=== PATIENT | male | born 1940 | race Caucasian/White ===

== ENCOUNTER 2018-05-02 08:51 | Day surgery (SDC) | payer MEDICARE, BC ==
--- NOTE | 2018-04-27 15:19 | HP ---
PREOPERATIVE HISTORY AND PHYSICAL: DATE OF SURGERY/ADMISSION: 05/02/18 DATE OF OFFICE VISIT/ENCOUNTER: 04/12/18 ATTENDING SURGEON: Sienna Kathleen MD * (DICTATED BY MINESH CHANG) PROCEDURE: Right wrist carpal tunnel release. CHIEF COMPLAINT: Right wrist pain, numbness and tingling in right hand. HISTORY OF PRESENT ILLNESS: This is a 77-year-old male who complains of right wrist pain and numbness and tingling in his hand that has been ongoing for several years, gradually getting worse. He tried wearing a brace, but did not get much relief. He had a recent nerve conduction study, which showed moderate carpal tunnel syndrome on the right. He is interested in pursuing surgical intervention for this problem at this time in the form of a right wrist carpal tunnel release. The patient has a significant cardiac history. His signalling and communications engineer is Dr. Munoz and we will obtain clearance from Dr. Munoz prior to proceeding with surgery. PAST MEDICAL HISTORY: 1. Coronary artery disease. 2. Hypertrophic cardiomyopathy. 3. Hypertension. 4. Hyperlipidemia. 5. Osteoarthritis. 6. Depression/anxiety. 7. Environmental allergies. PAST SURGICAL HISTORY: 1. Angioplasty of LAD in 1993. 2. Back surgery in 1973. 3. Hernia repair. CURRENT MEDICATIONS: 1. Aspirin 325 mg daily. 2. Atenolol 50 mg one and half tabs twice a day. 3. Atorvastatin calcium 40 mg daily. 4. B12 5000 mcg daily. 5. Cinnamon 1 tab daily. 6. Enalapril maleate 20 mg 1 tab in the morning 1/2 tab in the p.m. 7. Furosemide 40 mg daily. 8. Garlic daily. 9. Glucosamine/chondroitin 1500 complex 1 tab daily. 10. Hydralazine HCl 10 mg twice a day. 11. Klor-Con 10 mEq daily. 12. Manganese daily. 13. Multivitamin 1 tab daily. 14. Naproxen p.r.n. 15. Nitrostat 0.4 mg. 16. Turmeric daily. 17. Venlafaxine HCl 37.5 mg daily. 18. Venlafaxine HCl 75 mg daily. 19. Vitamin C daily. ALLERGIES: No known drug allergies. Positive for environmental allergies. FAMILY MEDICAL HISTORY: Gout. SOCIAL HISTORY: The patient is retired. He denies tobacco use and recreational drug use. He does drink alcohol on occasion. REVIEW OF SYSTEMS: General: Positive for weakness and fatigue. Negative unexplained weight loss/gain. No known anesthesia problems. HEENT: Negative for headache, lightheadedness, syncopal episodes, visual changes. Integumentary : Negative for abrasions, lesions, or open wounds. Cardiothoracic: Negative for hypertension, chest pain, palpitations, edema. Respiratory: Positive for shortness of breath with exertion. Negative chronic cough and wheezing. GI: Positive for diarrhea. Negative for nausea and vomiting. Negative for GERD. : Negative for nocturia, urinary frequency, urgency, history of UTIs, kidney problems. Musculoskeletal: Positive for current complaint. Positive for chronic back pain. Neurological: Negative for history of seizure, stroke, poor balance. Endocrine: Negative for diabetes and thyroid issues. Hematologic : Negative for easy bruising, anemia, bleeding disorders, history of DVT. Infectious Disease: Possibly positive for history of MRSA. The patient was unclear. Negative for hepatitis C and HIV. PHYSICAL EXAMINATION GENERAL: Well-developed, well-nourished 77-year-old male, in no acute distress. VITAL SIGNS: Height 5 feet 5 inches, weight 219 pounds. Pulse rate 70, blood pressure 162/88. HEENT: Normocephalic, atraumatic. Pupils are equal, round, and reactive to light and accommodation. Extraocular movements are intact. Throat is clear. NECK: Supple. No palpable lymph nodes. PULMONARY: Lungs are clear to auscultation bilaterally. No wheezes, rales, or rhonchi. CARDIOVASCULAR: Regular rate and rhythm. S1, S2. No murmurs, rubs, or gallops. No edema. ABDOMEN: Positive bowel sounds. Soft, nontender. NEUROLOGICAL: Alert and oriented x3. Cranial nerves II through XII are intact. Sensation is intact to light touch. MUSCULOSKELETAL: On exam of his right wrist and hand, he has no muscular wasting. He has weakness with thumb abduction. He can make a fist and extend his fingers. Decrease in wrist range of motion. Skin is intact. Neurovascular function is intact. IMAGING STUDIES: EMG nerve conduction study shows moderately severe right carpal tunnel syndrome. X-rays of the right wrist show arthritis. IMPRESSION: Right carpal tunnel syndrome and right wrist arthritis. PLAN: The patient is scheduled to undergo a right wrist carpal tunnel release with Dr. Kathleen on 05/02/18. He will return to the office 10 days postop for followup and suture removal. A prescription for Tylenol No. 3 was e-scribed to the patient's pharmacy for postoperative pain management. We will get clearance from his signalling and communications engineer, Dr. Munoz, prior to proceeding with surgery. MINESH CHANG [id number]/[facility] #: [id number] [place]
[~2018-05-02 08:51] MED LIST: Buffered Lidocaine 0.9% SYRIN* 5 ML/SYR SYRINGE INTRADERM ONE; Famotidine IV* 10 MG/ML 2 ML (20 mg) IV ONE
[2018-05-02] MEDS ORDERED: Famotidine IV* 10 MG/ML 2 ML (20 mg) ONE (08:58)
[2018-05-02] MEDS ORDERED: Midazolam* 1 MG/ML 5 ML VIAL (5 MG) ONE (09:58)
[2018-05-02] MEDS ORDERED: fentaNYL* 50 MCG/ML 2 ML VIAL (100 MCG VIAL) ONE (09:58)
[2018-05-02] MEDS ORDERED: Naloxone* 0.4 MG/ML 1 ML VIAL IV PRN (10:07)
[2018-05-02] MEDS ORDERED: Acetaminophen TAB* 325 MG PO PRN (10:07)
[2018-05-02] MEDS ORDERED: oxyCODONE TAB* 5 MG TAB PO PRN (10:07)
[2018-05-02] MEDS ORDERED: DiMENhydriNATE IV* 50 MG/ML VIAL IV PUSH PRN (10:07)
[2018-05-02] MEDS ORDERED: Lidocaine 1% INJ* 10 MG/ML 30 ML SDV ONE (10:14)
[2018-05-02] MEDS ORDERED: Ondansetron INJ* 2 MG/ML VIAL ONE (10:22)
[2018-05-02] MEDS ORDERED: Ketorolac INJ* 30 MG/ML 1 ML VIAL ONE (10:22)
[2018-05-02] MEDS ORDERED: Lidocaine 2% PF * 5 ML VIAL ONE (10:22)
[2018-05-02] MEDS ORDERED: Propofol* 10 MG/ML 20 ML BTL IV PUSH ONE (10:22)
[2018-05-02] MEDS ORDERED: Labetalol IV* 5 MG/ML 20 ML VIAL ONE (10:22)
[2018-05-02 11:04] VITALS: BP 184/99
--- NOTE | 2018-05-02 17:16 | OP ---
DATE OF OPERATION: 05/02/18 - [facility] DATE OF : 40 SURGEON: Sienna Kathleen MD SHOE TREER: MINESH Reynoso ANESTHESIA: Local MAC. PRE-OP DIAGNOSIS: Right carpal tunnel syndrome. POST-OP DIAGNOSIS: Right carpal tunnel syndrome. OPERATIVE PROCEDURE: Right carpal tunnel release. ESTIMATED BLOOD LOSS: Zero. TOURNIQUET TIME: Approximately 8 minutes. INDICATIONS FOR PROCEDURE: Barrington is a 77-year-old man who has numbness and tingling in the median nerve distribution of his right hand, he presents for right carpal tunnel release. DESCRIPTION OF PROCEDURE: The patient was brought to the operating room, was given a sedation anesthetic and local infiltration of 10 cc of 1% plain lidocaine in the palm of his right hand. The skin of his right hand and palm was prepped and draped in the usual sterile fashion. The hand and forearm were exsanguinated and the tourniquet elevated to 250 mmHg. A longitudinal incision was made in the palm in line with the ring finger, dissected sharply through the subcutaneous tissue down to the transverse carpal ligament. The ligament was divided sharply with a knife and then more proximally with the scissors. The nerve was dissected free from the surrounding tissue and there was an area of significant compression at the mid portion of the ligament. The wound was irrigated and the skin edges reapproximated with 4-0 nylon suture. The wound was dressed with Xeroform, 4x4, Webril, and an Perry wrap. The patient tolerated the procedure well and was brought to the recovery room in good condition. [id number]/[facility] #: [id number] [facility]
== END 2018-05-02 11:15 | disposition home or self-care (01) ==
LOC: OREAST 08:51
PROVIDERS: ATTEND Orthopaedic Surgery
DX: G56.01 Carpal tunnel syndrome, right upper limb (principal); I25.10 Atherosclerotic heart disease of native coronary artery without angina pectoris; I11.9 Hypertensive heart disease without heart failure; I43 Cardiomyopathy in diseases classified elsewhere; E78.5 Hyperlipidemia, unspecified; M19.90 Unspecified osteoarthritis, unspecified site; F41.8 Other specified anxiety disorders; J30.89 Other allergic rhinitis
CPT/HCPCS: J1885; J2250; J2405; J2704; J3010

== ENCOUNTER 2018-08-20 08:31 | Emergency (ER) | payer MEDICARE, BC ==
--- NOTE | 2018-08-20 09:33 | ED ---
Lower Extremity - HPI Summary HPI Summary: Patient presents with right lower extremity pain, swelling and firmness of thigh since Tuesday (5 days now). He is 1 month status post total knee replacement on this side w/ Dr. Stevens. He was taking Coumadin for DVT prophylaxis however stopped this recently as advised. He denies fever, chills, redness, numbness, tingling, weakness. He did go for a walk last night and has been going to physical therapy - reports no injuries or overuse he's been told. Orthopedic f/u a few weeks ago felt was progressing as usual - next f/u this Tuesday. He ortho today who sent him here for evaluation of DVT. He has not taken any pain medication prior to arrival and reports he 7 out of 10. Does not want anything for pain at this time. - History of Current Complaint Chief Complaint: EDExtremityLower Stated Complaint: RIGHT LEG PAIN Time Seen by Provider: 08/20/18 08:51 Hx Obtained From: Patient, Family/Elementary School Registrar - Pain Intensity: 7 - Allergies/Home Medications Allergies/Adverse Reactions: Allergies Allergy/AdvReac Type Severity Reaction Status Date / Time No Known Drug Allergies Allergy See Comment Verified 08/20/18 08:46 Hay Fever Allergy Runny Nose Uncoded 08/20/18 08:46 PMH/Surg Hx/FS Hx/Imm Hx Previously Healthy: Yes Endocrine/Hematology History: Reports: Hx Anemia - as a child age 7-8 years old Denies: Hx Anticoagulant Therapy, Hx Blood Disorders, Hx Diabetes Cardiovascular History: Reports: Hx Cardiomegaly - Non-Obstructive hypertrophic cardiomyopathy, Hx Congestive Heart Failure - DR. 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, mitral and tricuspid insufficiency, Other Cardiovascular Problems/Disorders - chronic ischemia, hyperlipidemia,dilated descending aorta Denies: Hx Angina, Hx Myocardial Infarction Respiratory History: Denies: Hx Asthma, Hx Chronic Obstructive Pulmonary Disease (COPD), Other Respiratory Problems/Disorders GI History: Denies: Other GI Disorders History: Reports: Other Problems/Disorders - BENIGN PROSTATE HYPERTROPHY- prostate surgery 2014 Musculoskeletal History: Reports: Hx Arthritis - right wrist, knees, Hx Tendonitis - Right carpal tunnel syndrome Sensory History: Reports: Hx Contacts or Glasses - READING GLASSES Denies: Hx Hearing Aid Opthamlomology History: Reports: Hx Contacts or Glasses - READING GLASSES Neurological History: Denies: Other Neuro Impairments/Disorders Psychiatric History: Reports: Hx Anxiety - always anxious, states he lost a son 3 years ago-gets hyper, Hx Depression - ON MEDICATION, states he is always depressed - Cancer History Hx Chemotherapy: No - Surgical History Surgery Procedure, Year, and Place: Back surgery 35 years ago L 5. Inguinal Hernia surgery 10 years ago. Angioplasty 1993. Prostate surgery. Rt TKR 2017 Hx Anesthesia Reactions: No - Immunization History Date of Tetanus Vaccine: Up to date Date of Influenza Vaccine: Fall 2012 Infectious Disease History: No Infectious Disease History: Reports: Hx of Known/Suspected MRSA - hx of on bilat thighs Denies: Traveled Outside the [place] in Last 30 Days - Social History Lives: With Family - Alcohol Use: Weekly Alcohol Amount: 1-2 beers/week Hx Substance Use: No Substance Use Type: Reports: None Hx Tobacco Use: No Smoking Status (MU): Never Smoked Tobacco Review of Systems Constitutional: Negative Negative: Fever, Chills, Fatigue Cardiovascular: Negative Negative: Chest Pain Positive: Shortness Of Breath - with exertion only (baseline per pt and ) Gastrointestinal: Negative Negative: Abdominal Pain, Vomiting, Diarrhea, Nausea Genitourinary: Negative Positive: Myalgia, Edema. Negative: Decreased ROM Skin: Negative Neurological: Negative Psychological: Normal All Other Systems Reviewed And Are Negative: Yes Physical Exam Triage Information Reviewed: Yes Vital Signs On Initial Exam: Initial Vitals Temp Pulse Resp BP Pulse Ox 99.2 F 98 18 179/99 95 08/20/18 08:40 08/20/18 08:40 08/20/18 08:40 08/20/18 08:40 08/20/18 08:40 Vital Signs Reviewed: Yes Appearance: Positive: Well-Appearing, No Pain Distress Skin: Positive: Warm, Skin Color Reflects Adequate Perfusion, Dry - no erythema , no ecchymosis, no lesions, no skin breakdown Head/Face: Positive: Normal Head/Face Inspection ENT: Positive: Hearing grossly normal, Pharynx normal - mucosa moist Respiratory/Lung Sounds: Positive: Breath Sounds Present Cardiovascular: Positive: Pulses are Symmetrical in both Upper and Lower Extremities, Leg Edema Right - +1-2 pitting edema in Rt tibial region and foot - NTTP Abdomen Description: Positive: Nontender, No Organomegaly, Soft Musculoskeletal: Positive: Strength/ROM Intact - Pt can actively and passively move Rt hip, knee, ankle and toes - reports mild Rt thigh pain w/ hip/knee flexion, Pain @ - Rt anterior thigh w/ mild TTP Neurological: Positive: Normal, Sensory/Motor Intact, Alert, Oriented to Person Place, Time, CN Intact II-III Psychiatric: Positive: Normal Diagnostics - Vital Signs Vital Signs Temp Pulse Resp BP Pulse Ox 08/20/18 09:00 99 97 08/20/18 08:56 107 97 08/20/18 08:40 99.2 F 98 18 179/99 95 - Laboratory Result Diagrams: 08/20/18 09:52 08/20/18 09:52 Lab Statement: Any lab studies that have been ordered have been reviewed, and results considered in the medical decision making process. Lower Extremity Course/Dx - Course Course Of Treatment: Pt here w/ Rt LE swelling and pain since Tuesday. No injuries or known overuse however he has been walking and in PT. Also stopped coumadin for DVT prophylaxis recently. WAs sent by ortho to r/o DVT. U/S: No DVT, no phlebitis. Labs: mildly elevated inflammatiory markers w/o elevated WBC 's, fever or s/sx of infection. XR's: no actute findings and hardware appears to be intact. Does not appear to have compartment syndrome. Discussed w/ Dr. Hughes who reports swelling 1 month post op TKR can be normal. Recommended compression stocking (thigh high) which he's not been wearing. Will follow-up with ortho this week and return to ED if danger s/sx present. Pt and agree w/ plan. - Diagnoses Provider Diagnoses: Right leg swelling Discharge - Sign-Out/Discharge Documenting (check all that apply): Patient Departure - Discharge Plan Condition: Stable Disposition: HOME Patient Education Materials: Leg Edema (ED) Referrals: Rocio Stevens MD [Medical Doctor] - Additional Instructions: The definitive cause of your leg swelling was not identified today however there is suspicion that possible overuse after your total knee replacement could be the cause. It is important that you maintain gentle range of motion without sitting or standing for prolonged periods. You may also start wearing a thigh-high compression stocking - put this on first thing in the morning, where throughout the day and remove before bedtime. Additionally, take your medications as directed especially your lasix to reduce fluid. Avoid salt. Keep follow-up with orthopedics and return to the emergency department if her symptoms worsen. - Billing Disposition and Condition Condition: STABLE Disposition: Home
[2018-08-20 10:00] LABS: ABS Basophils 0.1 10^3/ul (0-0.2); ABS Eosinophils 0.8 10^3/ul (0-0.6); ABS Lymphocytes 1.3 10^3/ul (1.0-4.8); ABS Monocytes 0.7 10^3/ul (0-0.8); ABS Neutrophils 6.5 10^3/ul (1.5-7.7); ABS Nucleated RBC 0 10^3/ul; Eosinophil % 8.2 %; Hematocrit 33 % (42-52); Hemoglobin 11.3 g/dl (14.0-18.0); Lymphocyte % 14.3 %; Mean Corpuscular HGB Conc 34 g/dl (31-36); Mean Corpuscular Hemoglobin 29 pg (27-31); Mean Corpuscular Volume 87 fL (80-94); Mean Platelet Volume 8.3 fL (7.4-10.4); Nucleated Red Blood Cells % 0; Platelet Count 338 10^3/ul (150-450); Red Blood Count 3.82 10^6/ul (4.00-5.40); Red Cell Distribution Width 14 % (10.5-15); White Blood Count 9.4 10^3/ul (3.5-10.8)
[2018-08-20 10:17] LABS: EGFR Non-African American 80.8 (>60)
[2018-08-20 10:25] LABS: INR 1.1 (0.77-1.02)
[2018-08-20 12:31] VITALS: BP 174/89
== END 2018-08-20 12:36 | disposition home or self-care (01) ==
LOC: ED 08:31
DX: R60.0 Localized edema (principal); E78.00 Pure hypercholesterolemia, unspecified; F32.9 Major depressive disorder, single episode, unspecified; M16.0 Bilateral primary osteoarthritis of hip; M85.88 Other specified disorders of bone density and structure, other site; I73.9 Peripheral vascular disease, unspecified
CPT/HCPCS: 36415; 72170; 80053; 83605; 85025; 85610; 85652; 85730; 86140; 99282

== ENCOUNTER 2018-10-23 19:34 | Observation (INO) | payer MEDICARE, BC ==
[2018-10-23] MEDS ORDERED: hydrALAZINE IV* 20 MG/ML VIAL IV SLOW PU ONE (20:09)
--- NOTE | 2018-10-23 20:12 | ED ---
Neurological HPI - HPI Summary HPI Summary: The patient is a 78 year old male who is presenting to the [facility] with a chief complaint of confusion. The patient rates the pain 0/10 in severity. Symptoms aggravated by nothing. Symptoms alleviated by nothing. As per Triage, the patient was brought in by and son and was confused. The patient is currently alert and orientated. However, prior to [facility] arrival, the patient had an episode of confusion where the patient was unsure where he was and why he was there. Patient was seen to be at baseline at 1730 today. During the initial examination, the patient is alert to his name. Patient reports of nervousness and denies LARA, nausea and vomiting. Prior to 1730, the patient denies any symptoms and states the "day was normal." Around 1730, the patient began asking questions to his that were previously known such as about their elder son, and where they why they had been staying at their daughter in law's house. The patient's verbal communication and skills were at normal. The duration of this confused period was 1 hour. Patient has not taken his medication today, however, he is normally complaint except on rare occasions where he forgets. Past medical history includes HTN. - History of Current Complaint Chief Complaint: EDNeurologicalDeficit Stated Complaint: CONFUSED Time Seen by Provider: 10/23/18 19:56 Hx Obtained From: Patient Onset/Duration: Sudden Onset Pain Intensity: 0 Aggravating: Nothing Alleviating: Nothing Associated Signs and Symptoms: Positive: Confusion. Negative: Nausea/Vomiting, Fever - Additional Pertinent History Primary Care Physician: [id number] - Allergy/Home Medications Allergies/Adverse Reactions: Allergies Allergy/AdvReac Type Severity Reaction Status Date / Time No Known Drug Allergies Allergy See Comment Verified 10/23/18 19:54 Hay Fever Allergy Runny Nose Uncoded 10/23/18 19:54 PMH/Surg Hx/FS Hx/Imm Hx Endocrine/Hematology History: Reports: Hx Anemia - as a child age 7-8 years old Denies: Hx Anticoagulant Therapy, Hx Blood Disorders, Hx Diabetes Cardiovascular History: Reports: Hx Cardiomegaly - Non-Obstructive hypertrophic cardiomyopathy, Hx Congestive Heart Failure - DR. CAN OVERLOCK HEMMER, Hx Coronary Artery Disease - CHOLESTEROL CONTROL WITH MEDS, Hx Hypercholesterolemia , Hx Hypertension, Hx Valvular Heart Disease - trace to mild aortic, mitral and tricuspid insufficiency, Other Cardiovascular Problems/Disorders - chronic ischemia, hyperlipidemia,dilated descending aorta Denies: Hx Angina, Hx Myocardial Infarction Respiratory History: Denies: Hx Asthma, Hx Chronic Obstructive Pulmonary Disease (COPD), Other Respiratory Problems/Disorders GI History: Denies: Other GI Disorders History: Reports: Other Problems/Disorders - BENIGN PROSTATE HYPERTROPHY- prostate surgery 2014 Musculoskeletal History: Reports: Hx Arthritis - right wrist, knees, Hx Tendonitis - Right carpal tunnel syndrome Sensory History: Reports: Hx Contacts or Glasses - READING GLASSES Denies: Hx Hearing Aid Opthamlomology History: Reports: Hx Contacts or Glasses - READING GLASSES Neurological History: Denies: Other Neuro Impairments/Disorders Psychiatric History: Reports: Hx Anxiety - always anxious, states he lost a son 3 years ago-gets hyper, Hx Depression - ON MEDICATION, states he is always depressed - Cancer History Hx Chemotherapy: No - Surgical History Surgery Procedure, Year, and Place: Back surgery 35 years ago L 5. Inguinal Hernia surgery 10 years ago. Angioplasty 1993. Prostate surgery. Rt TKR 2017 Hx Anesthesia Reactions: No - Immunization History Date of Tetanus Vaccine: Up to date Date of Influenza Vaccine: Fall 2012 Infectious Disease History: No Infectious Disease History: Reports: Hx of Known/Suspected MRSA - hx of on bilat thighs Denies: Traveled Outside the [place] in Last 30 Days - Family History Family History: Gout and Meniere's disease - Social History Occupation: Retired Lives: With Family Alcohol Use: Weekly Alcohol Amount: 1-2 beers/week Hx Substance Use: No Substance Use Type: Reports: None Hx Tobacco Use: No Smoking Status (MU): Never Smoked Tobacco Review of Systems Constitutional: Negative Eyes: Negative ENT: Negative Cardiovascular: Negative Respiratory: Negative Negative: Vomiting, Nausea Genitourinary: Negative Musculoskeletal: Negative Skin: Negative Negative: Headache Psychological: Other - [facility] All Other Systems Reviewed And Are Negative: Yes Physical Exam - Summary Physical Exam Summary: VITAL SIGNS: Reviewed. GENERAL: Patient is a well-developed and nourished (MALE). Patient is not in any acute respiratory distress and is anxious. HEAD AND FACE: No signs of trauma. No ecchymosis, hematomas or skull depressions. No sinus tenderness. EYES: PERRLA, EOMI x 2, No injected conjunctiva, no nystagmus. EARS: Hearing grossly intact. Ear canals and tympanic membranes are within normal limits. MOUTH: Oropharynx within normal limits. NECK: Supple, trachea is midline, no adenopathy, no JVD, no carotid bruit, no c- spine tenderness, neck with full ROM. CHEST: Symmetric, no tenderness at palpation LUNGS: Clear to auscultation bilaterally. No wheezing or crackles. CVS: Regular rate and rhythm, S1 and S2 present, no murmurs or gallops appreciated. ABDOMEN: Soft, non-tender. No signs of distention. No rebound no guarding, and no masses palpated. Bowel sounds are normal. EXTREMITIES: FROM in all major joints, no edema, no cyanosis or clubbing. NEURO: Alert and oriented x 3. No acute neurological deficits. Speech is normal and follows commands. SKIN: Dry and warm Triage Information Reviewed: Yes Vital Signs On Initial Exam: Initial Vitals Temp Pulse Resp BP Pulse Ox 99.2 F 65 16 130/104 92 10/23/18 19:49 10/23/18 19:49 10/23/18 19:49 10/23/18 19:49 10/23/18 19:49 Vital Signs Reviewed: Yes Diagnostics - Vital Signs Vital Signs Temp Pulse Resp BP Pulse Ox 10/23/18 19:49 99.2 F 65 16 130/104 92 - Laboratory Result Diagrams: 10/23/18 20:37 10/23/18 21:55 Lab Statement: Any lab studies that have been ordered have been reviewed, and results considered in the medical decision making process. - CT Brain CT CT Interpretation Completed By: Radiologist Summary of CT Findings: Brain CT reveals No acute intracranial abnormality. ED physician has reviewed this radiology report. - EKG 2019 Cardiac Rate: NL - 70 bpm EKG Rhythm: Sinus Rhythm Summary of EKG Findings: EKG taken at 2019 reveals Sinus Rhythm at 70 bpm. Normal axis, Normal intervals and no ischemic changes. Course/Dx - Course Course Of Treatment: The patient is a 78 year old male who is presenting to the [facility] with a chief complaint of confusion. Lab results were remarkable for WBC and low sodium. A Brain CT and EKG was taken in the [facility]. We consulted Dr. Radha Barros on patient care at 2130. He has accepted patient care. The patient will be admitted to the [facility] with a dx of HTN and TIA. - Diagnoses Provider Diagnoses: HTN (hypertension), TIA (transient ischemic attack) - Physician Notifications Discussed Care Of Patient With: Papo Garcia Time Discussed With Above Provider: 21:30 Instructed by Provider To: Admit As Observation Discharge - Sign-Out/Discharge Documenting (check all that apply): Patient Departure - ADMITTED TO THE [facility] - Discharge Plan Condition: Stable Disposition: ADMITTED TO [facility] - Billing Disposition and Condition Condition: STABLE Disposition: Admitted to [facility] - Attestation Statements Document Initiated by Monikibe: Yes Documenting Scribe: Reed Trujillo Provider For Whom Karla is Documenting (Include Credential): Dr. Deon Poole Scribe Attestation: Reed Loyola scribed for Dr. Deon Poole on 10/24/18 at 0551. Scribe Documentation Reviewed: Yes Provider Attestation: The documentation as recorded by the Reed valenzuela accurately reflects the service I personally performed and the decisions made by Dr. Osito pappas Status of Scribe Document: Viewed
[2018-10-23 20:45] LABS: ABS Basophils 0.1 10^3/ul (0-0.2); ABS Eosinophils 0.3 10^3/ul (0-0.6); ABS Lymphocytes 1.8 10^3/ul (1.0-4.8); ABS Monocytes 1.2 10^3/ul (0-0.8); ABS Neutrophils 9.3 10^3/ul (1.5-7.7); ABS Nucleated RBC 0 10^3/ul; Eosinophil % 2.6 %; Hematocrit 45 % (42-52); Hemoglobin 14.9 g/dl (14.0-18.0); Lymphocyte % 14.5 %; Mean Corpuscular HGB Conc 33 g/dl (31-36); Mean Corpuscular Hemoglobin 29 pg (27-31); Mean Corpuscular Volume 87 fL (80-94); Mean Platelet Volume 9.3 fL (7.4-10.4); Nucleated Red Blood Cells % 0; Platelet Count 300 10^3/ul (150-450); Red Blood Count 5.21 10^6/ul (4.00-5.40); Red Cell Distribution Width 14 % (10.5-15); White Blood Count 12.7 10^3/ul (3.5-10.8)
[2018-10-23 20:54] LABS: Activated Partial Thrombo Time 38.7 seconds (26.0-36.3); INR 1.04 (0.77-1.02)
[2018-10-23] MEDS ORDERED: Labetalol IV* 5 MG/ML 20 ML VIAL IV PUSH ONE (20:59)
[2018-10-23 21:17] LABS: ALT 19 U/L (7-52); Albumin 4.3 g/dL (3.2-5.2); Albumin/Globulin Ratio 1.1 (1-3); Alkaline Phosphatase 47 U/L (34-104); Anion Gap 6 mmol/L (2-11); BUN/Creatinine Ratio 22.7 (8-20); Blood Urea Nitrogen 20 mg/dL (6-24); CO2 Carbon Dioxide 23 mmol/L (22-32); Calcium 9.5 mg/dL (8.6-10.3); Chloride 105 mmol/L (101-111); EGFR African American 101.3 (>60); EGFR Non-African American 83.8 (>60); Glucose 134 mg/dL (70-100); Magnesium 2.3 mg/dL (1.9-2.7); Sodium 134 mmol/L (135-145); Total Protein 8.3 g/dL (6.4-8.9); Troponin I 0.01 ng/mL (<0.04)
[2018-10-23] MEDS ORDERED: Aspirin TAB* 325 MG PO ONE (21:42)
[2018-10-23 22:16] LABS: Potassium Redraw 3.6 mmol/L (3.5-5.0)
[2018-10-23] MEDS ORDERED: Enoxaparin(*) 40 MG/0.4 ML SYR SUBCUT SCH (23:45)
[2018-10-24] MEDS ORDERED: Enalapril TAB* 5 MG PO SCH (00:15)
--- NOTE | 2018-10-24 01:01 | ADMNOTE ---
Subjective Date of Service: 10/23/18 Interval History: ADMISSION HISTORY AND PHYSICAL PCP: Sandra CC: confusion HPI: Patient is a 78 year old man with hypertension who had an episode of confusion at home before dinner, lasting about 60 minutes. He has little memory or insight into this, but his reports he was asking questions that made no sense, did not know where he was, when he was at his [id number]'s house. He had forgotten that his son had 4 years ago. The confusion cleared slowly, with no residual. Patient had forgotten to take his BP medications today. Denies headache, chest pain, SOB. Family History: Findings - Mother of stroke, M&F had CAD, Son of hypertrophic cardiomyopathy and sudden Social History: Findings - Retired, did office work, , one son living, never smoker, light alcohol use, no drugs Past Medical History: Findings - PMH: osteoarthritis, HTN, hyperlipidemia, CAD, hypertrophic cardiomyopathy, depression; PSH: right TKR 07/23, angioplasty, laminectomy, TURP, hernia repair, carpal tunnel release Review of Systems - Measurements Intake and Output: Intake and Output Last 24 Hours 10/21/18 10/22/18 10/23/18 10/24/18 06:59 06:59 06:59 06:59 Weight 90.718 kg - Review of Systems Constitutional Symptoms: Negative: Weakness, Fatigue Dermatology: Positive: Normal HEENT: Positive: Normal Eyes: Positive: Normal Negative: Change in Vision Thyroid: Positive: Normal Cardiology: Negative: Chest Pain, Shortness of Breath, Palpitations, Edema, Syncope Gastroenterology: Positive: Normal Genital - Urinary: Positive: Normal Musculoskeletal: Positive: Arthritis Endocrinology: Positive: Normal Hematologic/Lymphatic: Negative: Anemia Neurology: Positive: Change in Memory Negative: Headache, Change in Vision, Change in Speech, Hx of Stroke\TIA Psychiatry: Positive: Normal Objective Active Medications: Home Meds: Amlodipine Besylate (Norvasc Tab*) 5 mg PO BID [facility] Aspirin (Aspirin Tab*) 325 mg PO QAM [facility] Atenolol (Tenormin Tab*) 75 mg PO DAILY [facility] Atorvastatin Calcium (Lipitor*) 40 mg PO QAM [facility] Enalapril Maleate (Vasotec Tab*) 10 mg PO BEDTIME [facility] Last Admin: 10/24/18 00:30 Dose: 10 mg Enalapril Maleate (Vasotec Tab*) 20 mg PO QAM [facility] Furosemide (Lasix Tab*) 40 mg PO QAM [facility] Hydralazine HCl (Apresoline Tab*) 10 mg PO BID [facility] Potassium Chloride (Klor Con Er Tab*) 10 meq PO QAM [facility] Venlafaxine HCl (Effexor Xr Cap*) 112.5 mg PO QAM [facility]; Protocol Vital Signs - 8 hr 10/23/18 10/23/18 10/23/18 20:07 20:28 20:37 Temperature Pulse Rate 71 68 Respiratory 23 19 20 Rate Blood Pressure 232/118 229/107 209/103 (mmHg) O2 Sat by Pulse 95 94 Oximetry 10/23/18 10/23/18 10/23/18 20:56 21:00 21:20 Temperature Pulse Rate 75 71 68 Respiratory 22 20 28 Rate Blood Pressure 211/89 173/79 (mmHg) O2 Sat by Pulse 97 96 94 Oximetry 10/23/18 10/23/18 10/23/18 21:39 22:00 23:00 Temperature Pulse Rate 68 69 62 Respiratory 25 20 25 Rate Blood Pressure 179/89 (mmHg) O2 Sat by Pulse 93 93 94 Oximetry Oxygen Devices in Use Now: None Appearance: alert, no distress Eyes: No Scleral Icterus Ears/Nose/Mouth/Throat: NL Teeth, Lips, Gums Neck: NL Appearance and Movements; NL JVP Respiratory: Symmetrical Chest Expansion and Respiratory Effort, Clear to Auscultation Cardiovascular: NL Sounds; No Murmurs; No JVD, RRR Abdominal: NL Sounds; No Tenderness; No Distention Lymphatic: No Cervical Adenopathy Extremities: No Edema Skin: No Rash or Ulcers Neurological: Alert and Oriented x 3 Lines/Tubes/Other Access: Clean, Dry and Intact Peripheral IV Nutrition: Taking PO's Result Diagrams: 10/23/18 20:37 10/24/18 06:16 Additional Lab and Data: Laboratory Tests 10/23/18 10/23/18 10/23/18 20:37 20:37 21:55 INR (Anticoag Therapy) 1.04 H APTT 38.7 H Magnesium 2.3 AST 21 ALT 19 Troponin I 0.01 Albumin 4.3 Diagnostic Imaging: Head CT: no infarct EKG Data: Normal sinus rhythm, normal axis, LVH Assess/Plan/Problems-Billing Assessment: 78 year old man w/ transient confusion, hypertensive urgency, possible TIA - Patient Problems (1) TIA (transient ischemic attack) Current Visit: Yes Status: Acute Priority: High Code(s): G45.9 - TRANSIENT CEREBRAL ISCHEMIC ATTACK, UNSPECIFIED SNOMED Code(s): 677149007 Comment: -Confusion alone would be atypical for TIA. Seizure also in differential. -Will observe on telemetry -Continue aspirin QD -MRI and carotid doppler in AM (2) HTN (hypertension) Current Visit: No Status: Chronic Priority: High Code(s): I10 - ESSENTIAL (PRIMARY) HYPERTENSION SNOMED Code(s): 25302117 Comment: - BP elevated enough to cause cerebral dysfunction, loss of auto-regulation - Contontinue enalapril, hydralazine, lasix, and atenolol - Added norvasc overnight (3) DVT prophylaxis Current Visit: No Status: Acute Priority: Low Code(s): [id number] - SNOMED Code(s): 684291602 Comment: - SC lovenox Status and Disposition: observation
[2018-10-24 06:52] LABS: BUN/Creatinine Ratio 18.5 (8-20); Calcium 9.5 mg/dL (8.6-10.3); EGFR African American 111.5 (>60); EGFR Non-African American 92.2 (>60)
[2018-10-24] MEDS ORDERED: amLODIPine TAB* 5 MG PO ONE (08:31)
[2018-10-24] MEDS ORDERED: Atorvastatin* 40 MG TAB PO SCH (09:00)
[2018-10-24] MEDS ORDERED: Venlafaxine EXT RELEASE CAP* 37.5 MG PO SCH (09:00)
[2018-10-24] MEDS ORDERED: hydrALAZINE TAB* 10 MG PO SCH (09:00)
[2018-10-24] MEDS ORDERED: amLODIPine TAB* 5 MG PO SCH (09:00)
[2018-10-24] MEDS ORDERED: Enalapril TAB* 20 MG PO SCH (09:00)
[2018-10-24] MEDS ORDERED: Furosemide TAB* 40 MG PO SCH (09:00)
[2018-10-24] MEDS ORDERED: Aspirin TAB* 325 MG PO SCH (09:00)
[2018-10-24] MEDS ORDERED: Atenolol TAB* 25 MG PO SCH (09:00)
[2018-10-24] MEDS ORDERED: Potassium Chlor TAB* 10 MEQ TAB.ER PO SCH (09:00)
[2018-10-24 14:11] VITALS: BP 168/62
--- NOTE | 2018-10-24 19:19 | DS ---
CC: Dr. Flores * DISCHARGE SUMMARY: DATE OF ADMISSION: 10/23/18 DATE OF DISCHARGE: 10/24/18 PRIMARY CARE PROVIDER: Dr. Flores. PRIMARY DIAGNOSIS: Transient ischemic attack versus hypertensive emergency. SECONDARY DIAGNOSES: Include: 1. Hyperlipidemia. 2. Hypertension. 3. Hypertropic cardiomyopathy. 4. Depression. MEDICATIONS ON DISCHARGE: Include: 1. Atorvastatin 40 mg daily. 2. Atenolol 75 mg daily. 3. Aspirin 325 mg daily. 4. Enalapril 20 mg in the morning. 5. Vitamin B12 1 tab sublingually daily. 6. Cinnamon bark 1 cap daily. 7. Furosemide 40 mg daily. 8. Enalapril 10 mg at bedtime. 9. Multivitamin tab daily. 10. Hydralazine 10 mg twice daily. 11. Venlafaxine 112.5 mg in the morning. 12. Turmeric 1 cap daily. 13. Potassium chloride 10 mEq in the morning. 14. Amlodipine 10 mg daily. Please note the new addition of amlodipine to the patient's home medication list. PERTINENT IMAGING FINDINGS: Brain MRI, impression: Elevated T2 signal in the periventricular and subcortical white matter. Nonspecific but suggestive of chronic small vessel ischemia. No restricted diffusion to suggest infarct. Carotid Dopplers, impression: No hemodynamically significant stenosis of the right or left internal carotid arteries. HISTORY OF PRESENT ILLNESS AND HOSPITAL COURSE: This is a 78-year-old man with past medical history as outlined in the history of present illness on date of admission, who presented to the hospital after an hour of a confusional episode where he was at his [id number]-[id number]-[id number]'s house and forgot where he was, looking around, was very confused, although not aphasic, no paraesthesias or weakness. He presented to the hospital. It had resolved, but he was found to be hypertensive, systolic blood pressures of greater than 230 over diastolics greater than 118. He was admitted to the hospital on telemetry to rule out transient ischemic attack as well as control his blood pressure. He had missed his blood pressure medication that morning which is unusual for him. He was restarted on his home medications as well as amlodipine was added to his home medication. His blood pressure was under much better control in the hospital. His brain MRI did not indicate any residual CVA. In the absence of hypotension , TIA would seem most likely, however, in the setting of profound hypotension, hypertensive emergency is certainly a possibility for his presentation. He is to continue aspirin full dose, no new antiplatelet agent was added to his regimen. He is to continue his atorvastatin as well. He is a nonsmoker and does not have diabetes. Secondary risk prevention was discussed with the patient. He should see his primary care provider in 5 to 7 days, it was discussed with the patient. Reasons to return to the hospital including, but not limited to recurrent or worsening symptoms, confusion, chest pain, shortness of breath, nausea, vomiting , lightheadedness, loss of consciousness, paraesthesias, weakness, aphasia, headache, blurry vision, inability to obtain or tolerate medications discussed with the patient and family, they all acknowledged understanding. TIME SPENT: Greater than 60 minutes was spent on the discharge of this patient , greater than half was spent [id number] with the patient. [id number]/CPS #: [id number] CARY
[2018-10-24] MEDS ORDERED: Enoxaparin(*) 40 MG/0.4 ML SYR SUBCUT SCH (22:00)
[2018-10-25] MEDS ORDERED: amLODIPine TAB* 5 MG PO SCH (09:00)
== END 2018-10-24 15:46 | disposition home or self-care (01) ==
LOC: ED 19:34 → MEDTELE 23:36
PROVIDERS: ADMIT Internal Medicine; ATTEND Internal Medicine
DX: G45.9 Transient cerebral ischemic attack, unspecified (principal); R41.0 Disorientation, unspecified; I10 Essential (primary) hypertension; I25.10 Atherosclerotic heart disease of native coronary artery without angina pectoris; M19.90 Unspecified osteoarthritis, unspecified site; E78.5 Hyperlipidemia, unspecified; I42.2 Other hypertrophic cardiomyopathy; F32.9 Major depressive disorder, single episode, unspecified; Z79.82 Long term (current) use of aspirin
CPT/HCPCS: 36415; 70450; 70551; 80048; 80053; 83735; 84484; 85025; 85610; 85730; 93005; 93880; 96372; 96374; 96375; 99283; A9270-GY; G0378; J0360; J1650

== ENCOUNTER 2020-02-01 00:43 | Observation (INO) ==
[2020-02-01 01:40] LABS: ABS Basophils 0.1 10^3/ul (0-0.2); ABS Eosinophils 0.4 10^3/ul (0-0.6); ABS Lymphocytes 1.6 10^3/ul (1.0-4.8); ABS Monocytes 0.9 10^3/ul (0-0.8); Eosinophil % 3.7 %; Hematocrit 43 % (42-52); Hemoglobin 14.9 g/dL (14.0-18.0); Lymphocyte % 15.6 %; Mean Corpuscular HGB Conc 34 g/dL (31-36); Mean Corpuscular Hemoglobin 30 pg (27-31); Mean Corpuscular Volume 87 fL (80-94); Mean Platelet Volume 9.3 fL (7.4-10.4); Nucleated Red Blood Cells % 0.1; Platelet Count 296 10^3/uL (150-450); Red Blood Count 4.99 10^6 /uL (4.18-5.48); Red Cell Distribution Width 14 % (10-15); White Blood Count 10.6 10^3/uL (3.5-10.8)
[2020-02-01 01:44] LABS: INR 1.13 (0.82-1.09)
[2020-02-01 01:58] LABS: ALT 27 U/L (7-52); AST 24 U/L (13-39); Albumin 3.8 g/dL (3.2-5.2); Albumin/Globulin Ratio 1.1 (1-3); Alkaline Phosphatase 54 U/L (34-104); Anion Gap 5 mmol/L (2-11); BUN/Creatinine Ratio 16.5 (8-20); Blood Urea Nitrogen 17 mg/dL (6-24); CO2 Carbon Dioxide 27 mmol/L (22-32); Calcium 9.6 mg/dL (8.6-10.3); Chloride 105 mmol/L (101-111); EGFR African American 84.3 (>60); EGFR Non-African American 69.7 (>60); Globulin 3.4 g/dL (2-4); Glucose 128 mg/dL (70-100); Potassium 4.5 mmol/L (3.5-5.0); Sodium 137 mmol/L (135-145); Total Protein 7.2 g/dL (6.4-8.9)
[2020-02-01] MEDS ORDERED: Diltiazem IV push/loading dose 5 MG/ML 5 ML vial (25 mg) IV SLOW PU ONE (03:27)
[2020-02-01 03:35] LABS: Urine Appearance Clear; Urine Bilirubin Negative (Negative); Urine Blood Negative (Negative); Urine Color Yellow; Urine Glucose Negative (Negative); Urine Ketones Negative (Negative); Urine Nitrite Negative (Negative); Urine Protein 1+(30 mg/dL) (Negative); Urine Specific Gravity 1.011 (1.010-1.030); Urine Urobilinogen Negative (Negative)
[2020-02-01 03:40] LABS: Urine Bacteria Absent (Absent); Urine Red Blood Cell Trace(0-2/hpf) (Absent); Urine Squamous Epithelial Cell Present (Absent); Urine White Blood Cell Trace(0-5/hpf) (Absent)
[2020-02-01] MEDS ORDERED: hydrALAZINE 20 mg/ml 1 ML Vial IV IV SLOW PU ONE (04:28)
[2020-02-01 05:54] LABS: Alcohol, S < 10 mg/dL (<10)
[2020-02-01 06:10] LABS: TSH (Thyroid Stimulating Horm) 6.05 mcIU/mL (0.34-5.60)
[2020-02-01] MEDS ORDERED: Enoxaparin 40 MG/0.4 ML SYR(*) SUBCUT SCH (09:00)
[2020-02-01] MEDS ORDERED: CYANOCOBALAMIN 5000 MCG SL SCH (09:00)
[2020-02-01 12:04] VITALS: BP 132/89
== END 2020-02-01 16:10 | disposition home or self-care (01) ==
LOC: MEDTELE 00:43 → ED 00:43 → MEDTELE 06:08
PROVIDERS: ADMIT Internal Medicine; ATTEND Internal Medicine

== ENCOUNTER 2021-05-21 09:23 | Observation (INO) ==
[2021-05-21 10:13] LABS: ABS Basophils 0.1 10^3/ul (0-0.2); ABS Eosinophils 0.3 10^3/ul (0-0.6); ABS Lymphocytes 1.4 10^3/ul (1.0-4.8); ABS Monocytes 0.7 10^3/ul (0-0.8); ABS Neutrophils 7.9 10^3/ul (1.5-7.7); Eosinophil % 2.5 %; Hematocrit 48 % (42-52); Hemoglobin 16.1 g/dL (14.0-18.0); Lymphocyte % 13.9 %; Mean Corpuscular HGB Conc 34 g/dL (31-36); Mean Corpuscular Hemoglobin 29 pg (27-31); Mean Corpuscular Volume 87 fL (80-94); Mean Platelet Volume 8.3 fL (7.4-10.4); Platelet Count 416 10^3/uL (150-450); Red Blood Count 5.51 10^6 /uL (4.18-5.48); Red Cell Distribution Width 14 % (10-15); White Blood Count 10.3 10^3/uL (3.5-10.8)
[2021-05-21 10:20] LABS: INR 1.23 (0.86-1.15)
[2021-05-21 10:30] LABS: ALT 17 U/L (7-52); AST 16 U/L (13-39); Alkaline Phosphatase 70 U/L (35-149); Anion Gap 8 mmol/L (2-11); Blood Urea Nitrogen 19 mg/dL (6-24); CO2 Carbon Dioxide 25 mmol/L (22-32); Calcium 9.9 mg/dL (8.6-10.3); Chloride 103 mmol/L (101-111); EGFR African American 73.3 (>60); EGFR Non-African American 60.6 (>60); Glucose 167 mg/dL (70-100); Potassium 4.1 mmol/L (3.5-5.0); Sodium 136 mmol/L (135-145)
[2021-05-21 10:44] LABS: Troponin I 0.09 ng/mL (<0.03)
[2021-05-21 11:50] LABS: Rapid COVID-19 Molecular Undetected (Undetected)
[2021-05-21 13:52] LABS: Troponin I 0.13 ng/mL (<0.03)
[2021-05-21] MEDS ORDERED: Isosorbide Mononit ER 60mg TAB PO ONE (13:58)
[2021-05-21 16:57] LABS: Troponin I 0.09 ng/mL (<0.03)
[2021-05-22 07:58] VITALS: BP 124/74
[2021-05-22] MEDS ORDERED: Potassium Chlor 10 meq TAB PO SCH (09:00)
[2021-05-22] MEDS ORDERED: Isosorbide Mononit ER 30mg TAB PO SCH ×2 (09:00)
== END 2021-05-22 10:26 | disposition home or self-care (01) ==
LOC: ED 09:23 → MEDTELE 09:23 → SUATTDRO 11:53 → MEDTELE 15:24
PROVIDERS: ADMIT Internal Medicine; ATTEND Internal Medicine

== ENCOUNTER 2023-05-22 11:51 | Inpatient (IN) ==
[2023-05-22 12:27] LABS: Hematocrit 48.5 % (38-53); Hemoglobin 16.7 g/dL (13.2-16.3); Mean Corpuscular Hemoglobin 29.3 pg (27-33); Mean Corpuscular Hgb Conc 34.4 g/dL (31-36); Mean Corpuscular Volume 85.2 fL (80-97); Mean Platelet Volume 8.3 fL (7.5-11.2); Platelet Count 954 10^3/uL (150-450); Red Blood Count 5.69 10^6/uL (4.06-5.63); Red Cell Distribution Width 15.1 % (12-17); White Blood Count 31.1 10^3/uL (3.6-10.2)
[2023-05-22 12:32] LABS: INR 1.32 (0.83-1.13)
[2023-05-22] MEDS ORDERED: NS 0.9% 1000 ml BAG 1,000 ML IV ONE (12:40)
[2023-05-22 12:50] LABS: ABS Basophils 0.1 10^3/uL (0.0-0.1); ABS Lymphocytes 0.8 10^3/uL (1.0-4.8); ABS Monocytes 1.6 10^3/uL (0.0-1.1); ABS Neutrophils 28.6 10^3/uL (1.5-7.6); ABS Nucleated RBC 0.05 10^3/ul; Lymphocyte % 2.7 %; Nucleated Red Blood Cells % 0.2 /100 WBC (0.0-0.4)
[2023-05-22 13:05] LABS: Albumin 3.6 g/dL (3.2-5.2); Calcium 9.6 mg/dL (8.6-10.3); Magnesium 1.6 mg/dL (1.9-2.7); Potassium 4.9 mmol/L (3.5-5.0); Total Bilirubin 1.2 mg/dL (0.2-1.0)
[2023-05-22 13:11] LABS: Albumin/Globulin Ratio 0.8 (1-3); Creatinine, Serum 1.25 mg/dL (0.67-1.17); Globulin 4.5 g/dL (2-4); Total Protein 8.1 g/dL (6.4-8.9); eGFR CKD-EPI 57.5 (>60)
[2023-05-22] MEDS ORDERED: Magnesium Sulfate 2 gm BAG 2 GM/50 ML BAG IVPB ONE (13:24)
[2023-05-22] MEDS ORDERED: Piperacillin/Tazobac 3.375 BAG 3.375 GM/100 ML BAG IV ONE (13:49)
[2023-05-22 14:06] LABS: High Sensitivity Troponin 1 Hr 256 pg/mL (<20)
[2023-05-22] MEDS ORDERED: Iodixanol (CONTRAST) 320 MG/ML 100 ML SDV IV ONE (14:23)
[2023-05-22] MEDS ORDERED: Heparin DRIP 25,000 UNITS BAG 25,000 UNITS/500 ML BAG IV SCH (15:30)
[2023-05-22 15:38] LABS: Urine Appearance Clear; Urine Bilirubin Negative (Negative); Urine Blood 2+ (Negative); Urine Color Yellow; Urine Glucose 1+(50 mg/dL) (Negative); Urine Ketones 1+ (Negative); Urine Nitrite Negative (Negative); Urine Protein 3+(>=500 mg/dL) (Negative); Urine Specific Gravity 1.014 (1.002-1.030); Urine Urobilinogen Negative (Negative)
[2023-05-22] MEDS ORDERED: Acetaminophen IV 1 GM/100ML 1,000 MG/100 ML BAG IV ONE (15:50)
[2023-05-22 15:52] LABS: Creatinine, Serum 1.23 mg/dL (0.67-1.17); eGFR CKD-EPI 58.6 (>60)
[2023-05-22 15:54] LABS: Urine Bacteria Absent (Absent); Urine Red Blood Cell Trace(0-2/hpf) (Absent); Urine Squamous Epithelial Cell Present (Absent); Urine White Blood Cell Trace(0-5/hpf) (Absent)
[2023-05-22] MEDS ORDERED: Heparin 5000 UNITS/ML 1 mL VIAL IV PRN (16:00)
[2023-05-22] MEDS ORDERED: Acetaminophen IV 1 GM/100ML 1,000 MG/100 ML BAG IV PRN (16:09)
[2023-05-22] MEDS ORDERED: Lactated Ringers 1000 ml BAG 1,000 ML IV ONE (17:09)
[2023-05-22] MEDS: cefTRIAXone 1 gm/50 mL D5W 1 GM/50 ML BAG IV SCH (19:15)
[2023-05-22] MEDS: Azithromycin 500 mg/250 ml NS 500 MG/250 ML BAG IVPB SCH (20:03)
[2023-05-23 05:14] LABS: ABS Basophils 0.1 10^3/uL (0.0-0.1); ABS Eosinophils 0.2 10^3/uL (0.0-0.5); ABS Lymphocytes 1.7 10^3/uL (1.0-4.8); ABS Monocytes 0.8 10^3/uL (0.0-1.1); ABS Neutrophils 17.4 10^3/uL (1.5-7.6); ABS Nucleated RBC 0.01 10^3/ul; Eosinophil % 0.8 %; Hematocrit 39.8 % (38-53); Hemoglobin 13.6 g/dL (13.2-16.3); Lymphocyte % 8.2 %; Mean Corpuscular Hgb Conc 34.2 g/dL (31-36); Mean Corpuscular Volume 84.9 fL (80-97); Mean Platelet Volume 8.1 fL (7.5-11.2); Platelet Count 800 10^3/uL (150-450); Red Blood Count 4.69 10^6/uL (4.06-5.63); Red Cell Distribution Width 15.1 % (12-17); White Blood Count 20.1 10^3/uL (3.6-10.2)
[2023-05-23 05:23] LABS: Albumin 2.7 g/dL (3.2-5.2); Calcium 8.5 mg/dL (8.6-10.3); Potassium 4.2 mmol/L (3.5-5.0); Total Bilirubin 0.8 mg/dL (0.2-1.0)
[2023-05-23 05:29] LABS: Albumin/Globulin Ratio 0.9 (1-3); Creatinine, Serum 1.31 mg/dL (0.67-1.17); Globulin 3.1 g/dL (2-4); Total Protein 5.8 g/dL (6.4-8.9); eGFR CKD-EPI 54.3 (>60)
[2023-05-23] MEDS ORDERED: Lactated Ringers 1000 ml BAG 1,000 ML IV ONE ×2 (09:20→09:23)
[2023-05-23] MEDS ORDERED: dilTIAZem 30 MG TAB PO SCH (12:00)
[2023-05-23] MEDS ORDERED: Lactated Ringers 1000 ml BAG 1,000 ML IV SCH (13:00)
[2023-05-23] MEDS: cefTRIAXone 1 gm/50 mL D5W 1 GM/50 ML BAG IV SCH (17:08)
[2023-05-23] MEDS: Azithromycin 500 mg/250 ml NS 500 MG/250 ML BAG IVPB SCH (17:48)
[2023-05-24 04:18] LABS: ABS Basophils 0.1 10^3/uL (0.0-0.1); ABS Eosinophils 0.3 10^3/uL (0.0-0.5); ABS Monocytes 1.1 10^3/uL (0.0-1.1); ABS Neutrophils 12.4 10^3/uL (1.5-7.6); ABS Nucleated RBC 0.01 10^3/ul; Eosinophil % 1.8 %; Hematocrit 38.4 % (38-53); Lymphocyte % 12.7 %; Mean Corpuscular Hemoglobin 28.8 pg (27-33); Mean Corpuscular Hgb Conc 33.8 g/dL (31-36); Mean Corpuscular Volume 85.1 fL (80-97); Mean Platelet Volume 8.1 fL (7.5-11.2); Nucleated Red Blood Cells % 0.1 /100 WBC (0.0-0.4); Platelet Count 782 10^3/uL (150-450); Red Blood Count 4.52 10^6/uL (4.06-5.63); Red Cell Distribution Width 15.4 % (12-17); White Blood Count 15.9 10^3/uL (3.6-10.2)
[2023-05-24 04:30] LABS: Calcium 8.3 mg/dL (8.6-10.3); Magnesium 1.9 mg/dL (1.9-2.7); Potassium 4.1 mmol/L (3.5-5.0)
[2023-05-24 04:36] LABS: Creatinine, Serum 1.21 mg/dL (0.67-1.17); eGFR CKD-EPI 59.8 (>60)
[2023-05-24] MEDS ORDERED: Magnesium Sulfate IV 1GM/100ML 1 GM/100 ML BAG IV ONE (06:11)
[2023-05-24] MEDS: Lactated Ringers 1000 ml BAG 1,000 ML IV SCH ×2 (09:45→23:35)
[2023-05-24] MEDS: cefTRIAXone 1 gm/50 mL D5W 1 GM/50 ML BAG IV SCH (16:40)
[2023-05-24] MEDS: Azithromycin 500 mg/250 ml NS 500 MG/250 ML BAG IVPB SCH (18:22)
[2023-05-25 07:26] LABS: Calcium 9.2 mg/dL (8.6-10.3); Creatinine, Serum 1.05 mg/dL (0.67-1.17); Magnesium 1.8 mg/dL (1.9-2.7); Potassium 4.1 mmol/L (3.5-5.0); eGFR CKD-EPI 70.9 (>60)
[2023-05-25] MEDS ORDERED: Magnesium Sulfate 2 gm BAG 2 GM/50 ML BAG IVPB ONE (08:25)
[2023-05-25] MEDS ORDERED: Atropine 0.1 MG/ML 10 ml SYR (1 mg) ONE (14:48)
[2023-05-25 17:19] LABS: Hemoglobin 14.6 g/dL (13.2-16.3); Mean Corpuscular Hemoglobin 29.3 pg (27-33); Mean Corpuscular Hgb Conc 33.9 g/dL (31-36); Mean Corpuscular Volume 86.6 fL (80-97); Mean Platelet Volume 8.3 fL (7.5-11.2); Platelet Count 989 10^3/uL (150-450); Red Blood Count 4.97 10^6/uL (4.06-5.63); Red Cell Distribution Width 15.3 % (12-17); White Blood Count 22.5 10^3/uL (3.6-10.2)
[2023-05-25 17:32] LABS: Albumin 3.3 g/dL (3.2-5.2); Calcium 9.1 mg/dL (8.6-10.3); Magnesium 2.2 mg/dL (1.9-2.7); Potassium 4.7 mmol/L (3.5-5.0); Total Bilirubin 0.4 mg/dL (0.2-1.0)
[2023-05-25 17:38] LABS: Creatinine, Serum 1.01 mg/dL (0.67-1.17); Globulin 3.4 g/dL (2-4); Total Protein 6.7 g/dL (6.4-8.9); eGFR CKD-EPI 74.3 (>60)
[2023-05-25] MEDS: cefTRIAXone 1 gm/50 mL D5W 1 GM/50 ML BAG IV SCH (17:53)
[2023-05-25] MEDS ORDERED: Enoxaparin 100 MG/ML SYR SUBCUT SCH (18:00)
[2023-05-25] MEDS: Heparin DRIP 25,000 UNITS BAG 25,000 UNITS/500 ML BAG IV SCH (20:01)
[2023-05-26] MEDS: hydrALAZINE 20 mg/ml 1 ML Vial IV IV SLOW PU PRN (00:20)
[2023-05-26] MEDS: Heparin 5000 UNITS/ML 1 mL VIAL IV SCH ×2 (03:50→12:42)
[2023-05-26 06:28] LABS: Mean Corpuscular Hemoglobin 28.9 pg (27-33); Red Blood Count 4.82 10^6/uL (4.06-5.63); White Blood Count 21.9 10^3/uL (3.6-10.2)
[2023-05-26 06:29] LABS: Giant Platelets Present; Mean Platelet Volume 8.8 fL (7.5-11.2); Platelet Count 988 10^3/uL (150-450); Red Cell Distribution Width 15.5 % (12-17)
[2023-05-26 06:53] LABS: Magnesium 2.2 mg/dL (1.9-2.7); Potassium 4.7 mmol/L (3.5-5.0)
[2023-05-26 08:15] LABS: Creatinine, Serum 1.54 mg/dL (0.67-1.17); Phosphorus 4.5 mg/dL (2.5-5.0); eGFR CKD-EPI 44.8 (>60)
[2023-05-26] MEDS ORDERED: Lactated Ringers 1000 ml BAG 1,000 ML IV ONE (08:45)
[2023-05-26] MEDS ORDERED: Atropine 1 MG/ML INJ 1 ML VIAL IV PUSH PRN (14:23)
[2023-05-26] MEDS: Heparin DRIP 25,000 UNITS BAG 25,000 UNITS/500 ML BAG IV SCH (16:55)
[2023-05-26] MEDS: cefTRIAXone 1 gm/50 mL D5W 1 GM/50 ML BAG IV SCH (16:58)
[2023-05-26] MEDS ORDERED: NS 0.9% 1000 ml BAG 1,000 ML IV SCH (23:15)
[2023-05-27] MEDS ORDERED: Senna TAB 8.6 mg TAB PO ONE (02:44)
[2023-05-27] MEDS: hydrALAZINE 20 mg/ml 1 ML Vial IV IV SLOW PU PRN (03:05)
[2023-05-27 04:48] LABS: Hematocrit 39.7 % (38-53); Hemoglobin 13.3 g/dL (13.2-16.3); Mean Corpuscular Hemoglobin 28.5 pg (27-33); Mean Corpuscular Hgb Conc 33.6 g/dL (31-36); Mean Corpuscular Volume 84.9 fL (80-97); Mean Platelet Volume 8.6 fL (7.5-11.2); Platelet Count 874 10^3/uL (150-450); Red Blood Count 4.68 10^6/uL (4.06-5.63); White Blood Count 24.1 10^3/uL (3.6-10.2)
[2023-05-27 05:09] LABS: Albumin/Globulin Ratio 0.8 (1-3); Calcium 8.7 mg/dL (8.6-10.3); Creatinine, Serum 1.72 mg/dL (0.67-1.17); Globulin 3.6 g/dL (2-4); Magnesium 2.1 mg/dL (1.9-2.7); Phosphorus 4.4 mg/dL (2.5-5.0); Potassium 4.5 mmol/L (3.5-5.0); Total Bilirubin 0.5 mg/dL (0.2-1.0); Total Protein 6.6 g/dL (6.4-8.9); eGFR CKD-EPI 39.2 (>60)
[2023-05-27] MEDS ORDERED: ceFAZolin 2 GM in NS PREMIX 2 GM/100 ML BAG IVPB ONE (05:30)
[2023-05-27] MEDS ORDERED: fentaNYL 100 mcg/2 ml 50 MCG/ML VIAL ONE (06:39)
[2023-05-27] MEDS ORDERED: Iohexol 300 (CONTRAST) 10 ML SDV ONE (06:39)
[2023-05-27] MEDS ORDERED: Midazolam 5 mg/5 ml VIAL 1 mg/ml 5 ml VIAL (5 mg) ONE (06:39)
[2023-05-27] MEDS ORDERED: Lidocaine 1% VIAL 10 MG/ML 30 ML VIAL ONE (06:56)
[2023-05-27] MEDS ORDERED: Atropine 0.1 MG/ML 10 ml SYR (1 mg) ONE (07:35)
[2023-05-27] MEDS: Bumetanide IV 0.25 MG/ML 4 ml VIAL (1 mg) IV SLOW PU SCH ×2 (10:07→21:29)
[2023-05-27] MEDS: ceFAZolin VIAL 1 GM in NS 0.9% 50 ML 50 ML IVPB SCH ×2 (10:08→17:59)
[2023-05-27 10:52] LABS: Urine Appearance Clear; Urine Bilirubin Negative (Negative); Urine Blood Negative (Negative); Urine Color Straw; Urine Glucose Negative (Negative); Urine Ketones Negative (Negative); Urine Nitrite Negative (Negative); Urine Protein 1+(30 mg/dL) (Negative); Urine Specific Gravity 1.009 (1.002-1.030); Urine Urobilinogen Negative (Negative)
[2023-05-27 10:53] LABS: Urine Bacteria Absent (Absent); Urine Red Blood Cell Trace(0-2/hpf) (Absent); Urine White Blood Cell Trace(0-5/hpf) (Absent)
[2023-05-27 11:39] LABS: HIV 4th Generation Nonreactive (Nonreactive)
[2023-05-27 11:58] LABS: Hepatitis B Surface Antigen Nonreactive (Nonreactive)
[2023-05-27 12:01] LABS: Hepatitis A Ab IgM Negative (Negative)
[2023-05-27 12:02] LABS: Hepatitis B Core IgM Nonreactive (Nonreactive)
[2023-05-27 12:14] LABS: Hepatitis C Antibody Negative (Negative)
[2023-05-27 15:36] LABS: Calcium 9.3 mg/dL (8.6-10.3); Potassium 4.4 mmol/L (3.5-5.0)
[2023-05-27 15:42] LABS: Creatinine, Serum 1.64 mg/dL (0.67-1.17); eGFR CKD-EPI 41.5 (>60)
[2023-05-28] MEDS: ceFAZolin VIAL 1 GM in NS 0.9% 50 ML 50 ML IVPB SCH (01:28)
[2023-05-28 04:15] LABS: Hemoglobin 13.3 g/dL (13.2-16.3); Mean Corpuscular Hemoglobin 28.8 pg (27-33); Mean Corpuscular Hgb Conc 34.1 g/dL (31-36); Mean Corpuscular Volume 84.3 fL (80-97); Mean Platelet Volume 8.4 fL (7.5-11.2); Platelet Count 821 10^3/uL (150-450); Red Blood Count 4.63 10^6/uL (4.06-5.63); Red Cell Distribution Width 15.1 % (12-17); White Blood Count 20.3 10^3/uL (3.6-10.2)
[2023-05-28 04:24] LABS: Calcium 9.3 mg/dL (8.6-10.3); Magnesium 1.9 mg/dL (1.9-2.7); Potassium 4.2 mmol/L (3.5-5.0); Total Bilirubin 0.6 mg/dL (0.2-1.0)
[2023-05-28 04:30] LABS: Albumin/Globulin Ratio 0.8 (1-3); Creatinine, Serum 1.69 mg/dL (0.67-1.17); Globulin 3.7 g/dL (2-4); Phosphorus 4.4 mg/dL (2.5-5.0); Total Protein 6.7 g/dL (6.4-8.9)
[2023-05-28] MEDS: Bumetanide IV 0.25 MG/ML 4 ml VIAL (1 mg) IV SLOW PU SCH (09:21)
[2023-05-28] MEDS ORDERED: Bumetanide IV 0.25 MG/ML 4 ml VIAL (1 mg) IV SLOW PU SCH (15:00)
[2023-05-29 03:58] LABS: Hematocrit 39.6 % (38-53); Hemoglobin 13.7 g/dL (13.2-16.3); Mean Corpuscular Hemoglobin 29.2 pg (27-33); Mean Corpuscular Hgb Conc 34.5 g/dL (31-36); Mean Corpuscular Volume 84.5 fL (80-97); Mean Platelet Volume 8.2 fL (7.5-11.2); Platelet Count 822 10^3/uL (150-450); Red Blood Count 4.69 10^6/uL (4.06-5.63); Red Cell Distribution Width 15.1 % (12-17)
[2023-05-29 04:15] LABS: Albumin 3.1 g/dL (3.2-5.2); Albumin/Globulin Ratio 0.8 (1-3); Calcium 9.6 mg/dL (8.6-10.3); Creatinine, Serum 1.57 mg/dL (0.67-1.17); Globulin 3.8 g/dL (2-4); Magnesium 1.7 mg/dL (1.9-2.7); Phosphorus 3.8 mg/dL (2.5-5.0); Potassium 4.5 mmol/L (3.5-5.0); Total Bilirubin 0.7 mg/dL (0.2-1.0); Total Protein 6.9 g/dL (6.4-8.9); eGFR CKD-EPI 43.7 (>60)
[2023-05-29] MEDS ORDERED: Magnesium Sulfate IV 3 GM in NS 0.9% 100 ml BAG 100 ML IVPB ONE (04:29)
[2023-05-30 05:17] LABS: Hematocrit 44.9 % (38-53); Mean Corpuscular Hemoglobin 28.3 pg (27-33); Mean Corpuscular Hgb Conc 33.4 g/dL (31-36); Mean Corpuscular Volume 84.8 fL (80-97); Mean Platelet Volume 8.5 fL (7.5-11.2); Platelet Count 911 10^3/uL (150-450); Red Cell Distribution Width 15.2 % (12-17); White Blood Count 24.8 10^3/uL (3.6-10.2)
[2023-05-30 05:18] LABS: ABS Basophils 0.1 10^3/uL (0.0-0.1); ABS Eosinophils 0.5 10^3/uL (0.0-0.5); ABS Lymphocytes 1.9 10^3/uL (1.0-4.8); ABS Monocytes 2.3 10^3/uL (0.0-1.1); ABS Neutrophils 19.9 10^3/uL (1.5-7.6); ABS Nucleated RBC 0.01 10^3/ul; Lymphocyte % 7.8 %
[2023-05-30 05:34] LABS: Calcium 10.2 mg/dL (8.6-10.3); Magnesium 2.1 mg/dL (1.9-2.7); Potassium 4.4 mmol/L (3.5-5.0)
[2023-05-30 05:40] LABS: Creatinine, Serum 1.66 mg/dL (0.67-1.17); eGFR CKD-EPI 40.9 (>60)
[2023-05-30] MEDS ORDERED: Senna TAB 8.6 mg TAB PO PRN (13:03)
[2023-05-30] MEDS ORDERED: Magnesium Hydroxide LIQ 30 ML UDC PO PRN (13:03)
[2023-05-30] MEDS ORDERED: Senna TAB 8.6 mg TAB ONE (13:13)
[2023-05-31 05:42] LABS: Hemoglobin 14.5 g/dL (13.2-16.3); Mean Corpuscular Hemoglobin 28.5 pg (27-33); Mean Corpuscular Hgb Conc 33.7 g/dL (31-36); Mean Corpuscular Volume 84.6 fL (80-97); Mean Platelet Volume 8.2 fL (7.5-11.2); Platelet Count 926 10^3/uL (150-450); Red Blood Count 5.09 10^6/uL (4.06-5.63); Red Cell Distribution Width 15.1 % (12-17)
[2023-05-31 05:48] LABS: ABS Basophils 0.2 10^3/uL (0.0-0.1); ABS Eosinophils 0.5 10^3/uL (0.0-0.5); ABS Lymphocytes 2.1 10^3/uL (1.0-4.8); ABS Monocytes 1.9 10^3/uL (0.0-1.1); ABS Neutrophils 16.3 10^3/uL (1.5-7.6); ABS Nucleated RBC 0.01 10^3/ul; Eosinophil % 2.4 %; Lymphocyte % 10.1 %
[2023-05-31 06:04] LABS: Calcium 9.7 mg/dL (8.6-10.3); Creatinine, Serum 1.65 mg/dL (0.67-1.17); Magnesium 1.7 mg/dL (1.9-2.7); eGFR CKD-EPI 41.2 (>60)
[2023-05-31] MEDS ORDERED: Magnesium Sulfate IV 3 GM in NS 0.9% 100 ml BAG 100 ML IVPB ONE (10:05)
[2023-05-31] MEDS: Enoxaparin 30 MG/0.3 ML SYR SUBCUT SCH (15:35)
[2023-06-01 06:38] LABS: Hematocrit 42.1 % (38-53); Hemoglobin 14.5 g/dL (13.2-16.3); Mean Corpuscular Hemoglobin 28.9 pg (27-33); Mean Corpuscular Hgb Conc 34.4 g/dL (31-36); Mean Corpuscular Volume 83.9 fL (80-97); Mean Platelet Volume 8.5 fL (7.5-11.2); Platelet Count 944 10^3/uL (150-450); Red Blood Count 5.01 10^6/uL (4.06-5.63); Red Cell Distribution Width 14.9 % (12-17)
[2023-06-01 07:05] LABS: Calcium 10.1 mg/dL (8.6-10.3); Creatinine, Serum 1.86 mg/dL (0.67-1.17); Magnesium 2.2 mg/dL (1.9-2.7); eGFR CKD-EPI 35.7 (>60)
[2023-06-01 07:15] LABS: ABS Basophils 0.2 10^3/uL (0.0-0.1); ABS Eosinophils 0.6 10^3/uL (0.0-0.5); ABS Lymphocytes 2.2 10^3/uL (1.0-4.8); ABS Monocytes 2.2 10^3/uL (0.0-1.1); ABS Neutrophils 14.8 10^3/uL (1.5-7.6); ABS Nucleated RBC 0.01 10^3/ul; Lymphocyte % 11.1 %; Nucleated Red Blood Cells % 0.1 /100 WBC (0.0-0.4)
[2023-06-01] MEDS ORDERED: Lactated Ringers 1000 ml BAG 1,000 ML IV SCH (11:00)
[2023-06-01 12:46] LABS: Rapid COVID-19 Molecular Undetected (Undetected)
[2023-06-01] MEDS: Enoxaparin 30 MG/0.3 ML SYR SUBCUT SCH (15:34)
[2023-06-02 10:13] LABS: ABS Basophils 0.2 10^3/uL (0.0-0.1); ABS Eosinophils 0.4 10^3/uL (0.0-0.5); ABS Lymphocytes 1.5 10^3/uL (1.0-4.8); ABS Monocytes 1.4 10^3/uL (0.0-1.1); ABS Neutrophils 16.2 10^3/uL (1.5-7.6); Eosinophil % 2.3 %; Hematocrit 43.8 % (38-53); Hemoglobin 14.9 g/dL (13.2-16.3); Lymphocyte % 7.6 %; Mean Corpuscular Hemoglobin 28.6 pg (27-33); Mean Corpuscular Hgb Conc 33.9 g/dL (31-36); Mean Corpuscular Volume 84.5 fL (80-97); Mean Platelet Volume 8.1 fL (7.5-11.2); Platelet Count 929 10^3/uL (150-450); Red Blood Count 5.19 10^6/uL (4.06-5.63); Red Cell Distribution Width 14.8 % (12-17); White Blood Count 19.7 10^3/uL (3.6-10.2)
[2023-06-02 10:25] VITALS: BP 120/62
[2023-06-02 10:30] LABS: Calcium 10.1 mg/dL (8.6-10.3); Creatinine, Serum 1.54 mg/dL (0.67-1.17); Magnesium 1.9 mg/dL (1.9-2.7); Potassium 4.1 mmol/L (3.5-5.0); eGFR CKD-EPI 44.8 (>60)
== END 2023-06-02 14:04 | DRG 853 ==
LOC: ED 11:51 → EDHOLD 16:02 → SUATTDRO 16:02 → ICU 16:02 → MEDTELE 05-24 18:40 → ICU 05-25 15:54 → MEDTELE 05-30 16:47
PROVIDERS: ADMIT Student in an Organized Health Care Education/Training Program; ATTEND Student in an Organized Health Care Education/Training Program